=== PATIENT | female | born 1980 | race Hispanic/Latino ===

== ENCOUNTER 2017-05-16 11:05 | Day surgery (SDC) | payer BC ==
[~2017-05-16] VITALS: Ht 162.6 cm; Wt 90.0 kg
[~2017-05-16 11:05] MED LIST: PRENATAL VITAM1 EAC3 PO
[2017-05-16 11:30] VITALS: BP 121/62
[2017-05-16 11:51] LABS: HEMATOCRIT 37.5 % (36.0-46.0); MCV 81.7 FL (83-99)
[2017-05-16] MEDS ORDERED: IBUPROFEN800 MG PO (14:15)
[2017-05-16 15:06] VITALS: BP 104/68
[2017-05-16 16:00] VITALS: BP 99/66
[2017-05-16 16:49] VITALS: BP 100/57
== END 2017-05-16 16:50 | disposition home or self-care (01) ==
LOC: SDC 11:05
PROVIDERS: Obstetrics & Gynecology
PROC: 10D17ZZ Extraction of Products of Conception, Retained, Via Natural or Artificial Opening (ICD-10-PCS; principal; 2017-05-16)
DX: O03.4 Incomplete spontaneous abortion without complication (principal); Z3A.08 8 weeks gestation of pregnancy; E73.9 Lactose intolerance, unspecified; E66.9 Obesity, unspecified; Z68.34 Body mass index [BMI] 34.0-34.9, adult
CPT/HCPCS: 85014; 85018; 86850; 86900; 86901; 87086; J0330; J1100; J1885; J2250; J2270; J2405; J3010